=== PATIENT | female | born 1990 | race American Indian/Alaskan Native ===

== ENCOUNTER 2017-07-09 08:03 | Emergency (ER) | payer MEDICAID ==
[2017-07-09 09:45] LABS: Hematocrit 34.8 % (30.3-42.9); Hemoglobin 11.2 gm/dl (10.1-14.3); Mean Corpuscular HGB Conc 32 % (30-34); Platelet Count 254 K/mm3 (140-440); Red Blood Count 5.31 M/mm3 (3.65-5.03)
[2017-07-09 09:49] LABS: Mean Corpuscular Hemoglobin 21 pg (28-32); Mean Corpuscular Volume 66 fl (79-97); Red Cell Distribution Width 20.2 % (13.2-15.2)
[2017-07-09 10:37] LABS: Bilirubin,Urine NEG (Negative); Blood,Urine NEG (Negative); Color,Urine Yellow (Yellow); Mucus,Urine FEW /HPF; Protein,Urine <15 mg/dL mg/dL (Negative); Urobilinogen,Urine < 2.0 mg/dL (<2.0)
[2017-07-09 10:38] LABS: HCG Qualitative,Urine Positive (Negative)
--- NOTE | 2017-07-09 11:19 | Ultrasound Report ---
ULTRASOUND OB LESS THAN 14 WEEKS FETUS ULTRASOUND OB TRANSVAGINAL HISTORY: Spotting, cramping. COMPARISON: None. TECHNIQUE: Transabdominal and transvaginal ultrasound with color doppler interrogation. FINDINGS: Uterus: The uterus measures 11 x 9 x 10 cm. No uterine fibroid is disease is identified. The cervix is unremarkable. Endometrium: An intrauterine gestational sac containing a small pole is identified. No heart tones could be demonstrated on Doppler interrogation. Estimated age on ultrasound as 7 weeks, 6 days. Right ovary: 3.0 x 1.5 x 2.2 cm. No focal abnormality. Left ovary: Not visualized. No pelvic fluid or mass is identified. Normal color doppler interrogation. IMPRESSION: Findings consistent with demise.
--- NOTE | 2017-07-09 13:19 | Emergency Department Report ---
HPI - General Chief Complaint: Abdominal Pain Time Seen by Provider: 07/09/17 13:12 - HPI HPI: 26-year-old female presents the emergency department with complaint of being and not hearing a heart tone at her last [facility] appointment on Sunday, 3 days ago. The patient says she is about 12 weeks by last menstrual cycle. However she said she had a ultrasound done at 10 weeks , 2 weeks ago, and the ultrasound said she was about 8 weeks at that time. [facility] to [facility]. She has been taking vitamins. She denies any vaginal bleeding or pelvic/abdominal cramping. She says that she has been able to feel the baby move previously but it has not done so in the last few days and she came here for a second opinion. ED Past Medical Hx - Past Medical History Previous Medical History?: No - Surgical History Past Surgical History?: No - Social History Smoking Status: Former Smoker Substance Use Type: None ED Review of Systems ROS: Stated complaint: HAVENT FELT BABY MOVE Other details as noted in HPI Comment: All other systems reviewed and negative Constitutional: denies: chills, fever Eyes: denies: eye pain, eye discharge, vision change ENT: denies: ear pain, throat pain Respiratory: denies: cough, shortness of breath, wheezing Cardiovascular: denies: chest pain, palpitations Gastrointestinal: denies: abdominal pain, nausea, diarrhea Genitourinary: denies: urgency, dysuria, discharge Musculoskeletal: denies: back pain, joint swelling, arthralgia Skin: denies: rash, lesions Neurological: denies: headache, weakness, paresthesias Physical Exam - Physical Exam Vital Signs: Vital Signs 07/09/17 09:09 Temperature 99.1 F Pulse Rate 75 Respiratory 16 Rate Blood Pressure 119/72 O2 Sat by Pulse 100 Oximetry Physical Exam: GENERAL: The patient is well-developed well-nourished. HENT: Normocephalic. Atraumatic. Patient has moist mucous membranes. EYES: Extraocular motions are intact. NECK: Supple. Trachea is midline. CHEST/LUNGS: Clear to auscultation. There is no respiratory distress noted. HEART/CARDIOVASCULAR: Regular. There is no tachycardia. There is no murmur. ABDOMEN: Abdomen is soft, nontender. Patient has normal bowel sounds. There is no abdominal distention. SKIN: Skin is warm and dry. NEURO: The patient is awake, alert, and oriented. The patient is cooperative. The patient has no focal neurologic deficits. The patient has normal speech. MUSCULOSKELETAL: There is no tenderness or deformity. There is no limitation range of motion. There is no evidence of acute injury. ED Course Vital Signs 07/09/17 09:09 Temperature 99.1 F Pulse Rate 75 Respiratory 16 Rate Blood Pressure 119/72 O2 Sat by Pulse 100 Oximetry - Consultations Consultation #1: 07/09/17 13:43 Spoke with the [facility]CT[facility] at [facility], Dr. Augustin, who does not feel it is necessary to get a beta hCG quantitative level at this time but they will see her in the office later this week and can either discuss options for demise or reevaluate ultrasound for threatened miscarriage. ED Medical Decision Making - Lab Data Result diagrams: 07/09/17 09:26 - Radiology Data Radiology results: report reviewed ULTRASOUND OB LESS THAN 14 WEEKS FETUS ULTRASOUND OB TRANSVAGINAL HISTORY: Spotting, cramping. COMPARISON: None. TECHNIQUE: Transabdominal and transvaginal ultrasound with color doppler interrogation. FINDINGS: Uterus: The uterus measures 11 x 9 x 10 cm. No uterine fibroid is disease is identified. The cervix is unremarkable. Endometrium: An intrauterine gestational sac containing a small pole is identified. No heart tones could be demonstrated on Doppler interrogation. Estimated age on ultrasound as 7 weeks, 6 days. Right ovary: 3.0 x 1.5 x 2.2 cm. No focal abnormality. Left ovary: Not visualized. No pelvic fluid or mass is identified. Normal color doppler interrogation. IMPRESSION: Findings consistent with demise. Transcribed By: TTR Dictated By: TRISHA NAVARRO JR, MD Electronically Authenticated By: TRISHA NAVARRO JR, MD Signed Date/Time: 07/09/17 1112 - Medical Decision Making Patient presented for a second opinion after ultrasound at [facility] office did not show any heart tones. Today the ultrasound shows a intrauterine gestational sac and pole but no heart tones. The patient is not having any abdominal cramping or any vaginal bleeding but with 2 ultrasounds in a row showing no heart tones it appears most consistent with demise. However I spoke with the [facility] service and the patient will follow up there in a few days for either another ultrasound or discussion regarding how to proceed with a demise. The patient will remain with vitamins and take precautions until that time. Critical Care Time: No Critical care attestation.: If time is entered above; I have spent that time in minutes in the direct care of this critically ill patient, excluding procedure time. ED Disposition Clinical Impression: Threatened miscarriage Disposition: DC-01 TO HOME OR SELFCARE Is pt being admited?: No Condition: Stable Instructions: Threatened Miscarriage (ED) Additional Instructions: Please follow up with [facility] in a few days. Return to the emergency Department with any worsening of your symptoms or any acute distress. Referrals: [facility] [Provider Group] - 3-5 Days Forms: Work/School Release Form(ED) Time of Disposition: 13:44
[2017-07-09 13:57] VITALS: BP 97/64
== END 2017-07-09 13:58 | disposition home or self-care (01) ==
LOC: ED 08:03
DX: O20.0 Threatened abortion (principal); Z3A.12 12 weeks gestation of pregnancy; Z87.891 Personal history of nicotine dependence
CPT/HCPCS: 36415; 76801; 76817; 81001; 81025; 85027; 86900; 86901; 99284

== ENCOUNTER 2017-07-24 13:43 | Emergency (ER) | payer OTHER, MEDICAID ==
[2017-07-24 14:50] VITALS: BP 120/70
[2017-07-24] MEDS ORDERED: TORADOL IM ONE (16:13)
[2017-07-24] MEDS ORDERED: ULTRAM PO ONE (17:15)
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
== END 2017-07-24 17:32 | disposition home or self-care (01) ==
LOC: ED 13:43
DX: M54.9 Dorsalgia, unspecified (principal); V89.2XXA Person injured in unspecified motor-vehicle accident, traffic, initial encounter; Y93.89 Activity, other specified; Y92.89 Other specified places as the place of occurrence of the external cause; Y99.8 Other external cause status
CPT/HCPCS: 96372; 99282; J1885